=== PATIENT | female | born 1985 | race Two or more races ===

== ENCOUNTER 2023-11-15 10:27 | Emergency (ER) | payer OTHER ==
[~2023-11-15] VITALS: Ht 165.1 cm; Wt 104.5 kg
[2023-11-15 10:31] VITALS: TEMP 98
[2023-11-15] MEDS ORDERED: abx PO (10:35)
[2023-11-15] MEDS ORDERED: HYDR-4723 PO (10:35)
[2023-11-15] MEDS: ONDANSETRON HCL 4 MG/2 ML VIAL IM ONE (11:26)
[2023-11-15] MEDS: HYDROmorphone HCL 2 MG/ML SYRINGE IM ONE (11:26)
[2023-11-15] MEDS: KETOROLAC TROMETHAMINE 60 MG/2 ML VIAL IM ONE (11:26)
[2023-11-15] MEDS: LORazepam 1 MG TABLET PO ONE (11:26)
[2023-11-15] MEDS ORDERED: IBUP-1554 PO (13:44)
[2023-11-15] MEDS ORDERED: PERCT PO (13:44)
[2023-11-15 13:50] VITALS: BP 139/71; PULSE 89; RESP 18
[2023-11-15] MEDS ORDERED: ONDA-104 PO (14:49)
== END 2023-11-15 16:42 | disposition home or self-care (01) ==
LOC: EMS 10:27
DX: S92.912A Unspecified fracture of left toe(s), initial encounter for closed fracture (principal); X58.XXXA Exposure to other specified factors, initial encounter; Y93.89 Activity, other specified; Y92.89 Other specified places as the place of occurrence of the external cause; Y99.8 Other external cause status
CPT/HCPCS: 99284; 73630; 96372; J1170; J1885; J2405

== ENCOUNTER 2024-04-09 21:22 | Emergency (ER) | payer OTHER ==
[~2024-04-09] VITALS: Ht 165.1 cm; Wt 102.3 kg
[~2024-04-09 21:22] MED LIST: HYDR-4062 PO; IBUP-1554 PO; ONDA-104 PO; PERCT PO; abx PO
[2024-04-10] MEDS ORDERED: LIDO700A15 TP (01:27)
[2024-04-10] MEDS ORDERED: METH-812 PO (01:27)
[2024-04-10] MEDS ORDERED: IBUP-1492 PO (01:27)
[2024-04-10 02:11] VITALS: BP 119/77; PULSE 69; RESP 17; TEMP 97.3
[2024-04-10] MEDS: KETOROLAC TROMETHAMINE 60 MG/2 ML VIAL IM ONE (02:27)
[2024-04-10] MEDS: HYDROCODONE/ACETAMINOPHEN 5-325 MG TABLET PO ONE (02:27)
[2024-04-10] MEDS: LIDOCAINE 5% TRANSDERMAL PATCH TD ONE (02:28)
== END 2024-04-10 02:46 | disposition home or self-care (01) ==
LOC: EMS 21:22
DX: M54.50 Low back pain, unspecified (principal); M62.830 Muscle spasm of back
CPT/HCPCS: 99283; 96372; J1885

== ENCOUNTER 2025-04-01 19:50 | Emergency (ER) | payer OTHER ==
[~2025-04-01] VITALS: Ht 165.1 cm; Wt 109.1 kg
[~2025-04-01 19:50] MED LIST changes: +IBUP-1492 PO; +LIDO-57 TP; +METH-812 PO
[2025-04-01 19:53] VITALS: BP 113/48; PULSE 89; RESP 14; TEMP 99.5; O2SAT 100
[2025-04-01] MEDS ORDERED: ACET-2080 PO (20:17)
== END 2025-04-01 20:25 | disposition home or self-care (01) ==
LOC: EMS 19:50
DX: J02.9 Acute pharyngitis, unspecified (principal); Z79.899 Other long term (current) drug therapy
CPT/HCPCS: 99283; Z7502